=== PATIENT | male | born 1950 | race African-American/Black ===

== ENCOUNTER → 2016-11-03 | Outpatient (CLI) | payer MEDICARE ==
--- NOTE | 2016-11-03 15:07 | KCIC ---
PROCEDURE Five view cervical spine series HISTORY Persistent neck pain. FINDINGS There is grade 1 anterolisthesis of C7-T1. There is mild degenerative endplate spurring and disc space narrowing at C3-4 and C4-5 and C5-6 and C6-7. There is mild narrowing of the right neural foramina at the C3-4 and C5-6 levels. There is no significant narrowing of the left neural foramina. No acute fracture or anterolisthesis or discitis or osteolytic process or prevertebral soft tissue swelling is evident. There is mild levoscoliosis of the cervical and thoracic spine. IMPRESSION Mild degenerative cervical spondylosis. Electronically signed by: Gallo Lao MD (Nov 03, 2016 15:06:12)
== END | disposition home or self-care (01) ==
LOC: KCIC 13:44
PROVIDERS: ATTEND Family Medicine
DX: M47.892 Other spondylosis, cervical region (principal)
CPT/HCPCS: 72050

== ENCOUNTER → 2019-04-30 | Outpatient (CLI) | payer MEDICARE, OTHER ==
--- NOTE | 2019-04-30 16:08 | KCIC ---
EXAM: Abdomen sonogram. HISTORY: Right upper quadrant pain. TECHNIQUE: Sonographic imaging of the abdomen was performed. COMPARISON: None. FINDINGS: The liver is normal in size. There are simple appearing hepatic cysts measuring 1.4 cm and 1.5 cm within the right hepatic lobe. The gallbladder is unremarkable. The common bile duct is normal in caliber. The kidneys are normal in size. There is no hydronephrosis. There is a suspected small nonobstructing stone within the left kidney. The pancreas, aorta and inferior vena cava are partially obscured due to bowel gas. The spleen appears normal in size. IMPRESSION: 1. Simple appearing hepatic cysts. 2. Suspected nonobstructing left renal stone. 3. Partially obscured midline structures due to bowel gas. Electronically signed by: Ellen Owen MD (04/30/2019 4:05 PM) [id number]
== END | disposition home or self-care (01) ==
LOC: KCIC US 08:09
PROVIDERS: ATTEND Family Medicine
DX: R10.11 Right upper quadrant pain (principal)
CPT/HCPCS: 76700

== ENCOUNTER → 2020-09-22 | Outpatient (CLI) | payer MEDICARE ==
--- NOTE | 2020-09-22 08:59 | RAD ---
Examination: Ultrasound kidneys HISTORY: History of hematuria COMPARISON: None available FINDINGS: The right kidney measures 11.4 x 4.9 x 5.1 cm. The left kidney measures 11.1 x 5.4 x 5.8 cm. There is a 1.8 cm echogenicity identified in the left kidney likely a calculus. Mildly enlarged prostate glan d. Urinary bladder is mildly distended. IMPRESSION: 1. 1.8 cm calculus left kidney. Electronically signed by: Randall Uriarte MD (09/22/2020 8:56 AM) [id number]
== END ==
LOC: US 06:43
PROVIDERS: ATTEND Family Medicine
DX: N20.0 Calculus of kidney (principal); R31.9 Hematuria, unspecified
CPT/HCPCS: 76770

== ENCOUNTER → 2020-10-05 | Outpatient (CLI) | payer MEDICARE ==
--- NOTE | 2020-10-05 17:51 | KCIC ---
EXAM: XR CHEST 2V INDICATION: Reason: Cough, lingering cold like symptoms 3 weeks. / Spl. Instructions: Productive coug h, tinge of blood at times. / History: . TECHNIQUE: PA and lateral views COMPARISON: None FINDINGS: The heart size is normal. The great vessels appear unremarkable. There is no hilar or mediastinal mass. The lungs are clear. There is no pleural effusion or pneumothorax. There are no significant osseous abnormalities. IMPRESSION: No active cardiopulmonary disease. Electronically signed by: Trever Thompson MD (10/05/2020 5:49 PM) [id number]
== END ==
LOC: KCIC 09:54
PROVIDERS: ATTEND Family Medicine
DX: R05 Cough (principal)
CPT/HCPCS: 71046